=== PATIENT | female | born 1945 | race Caucasian/White ===

== ENCOUNTER 2016-05-27 10:52 | Day surgery (SDC) | payer MEDICARE ==
[~2016-05-27] VITALS: Ht 160 cm; Wt 73.0 kg
[~2016-05-27 10:52] MED LIST: 0.9% Sodium Chloride 1,000 ML IV PRN; Sodium Chloride LOK Flush 10 mL Syringe IV PRN; fentaNYL-PF 50 mCg/mL 2 mL Inj IVPUSH PRN
[2016-05-27 11:43] VITALS: BP 116/56; PULSE 68; RESP 16; O2SAT 98
[2016-05-27] MEDS ORDERED: OMEG500C PO (11:54)
[2016-05-27] MEDS ORDERED: LATA2.5D6 OP (11:54)
[2016-05-27] MEDS ORDERED: FLUT16SP NS (11:54)
[2016-05-27] MEDS ORDERED: ATOR20TA PO (11:54)
[2016-05-27] MEDS ORDERED: BRIM5DRO9 OP (11:54)
[2016-05-27] MEDS ORDERED: CALC600T12 PO (11:54)
[2016-05-27] MEDS ORDERED: FLUO40CA12 PO (11:56)
[2016-05-27] MEDS ORDERED: ACET-2766 PO (11:56)
[2016-05-27] MEDS ORDERED: ASCO-294 PO (11:56)
[2016-05-27] MEDS ORDERED: VITA400C64 PO (11:56)
[2016-05-27] MEDS ORDERED: MULT1CAP33 PO (11:56)
--- NOTE | 2016-05-27 13:22 | PCM.ENDCOL ---
Colonoscopy Date of Service: May 27, 2016 Physician Noah York MD Pre Procedure Diagnosis: Abdominal pain and screening Post Procedure Dx & Findings: Diverticuli hemorrhoids Procedure Colonoscopy Prep adequate Withdrawal time 11 minutes After unremarkable rectal examination the Olympus video colonoscope was inserted patient's anal canal and was advanced to cecum. Landmarks were identified including the ileocecal valve and appendiceal orifice. Scope was withdrawn systematically. Visualized colonic mucosa showed healthy shiny mucosa with normal healthy-appearing vasculature. We advanced to the terminal ileum. We had partial intubation. She was very redundant. In the sigmoid colon multiple medium sized diverticula noted. In the rectum retroflexion was done which showed hemorrhoids. Anal canal was inspected carefully on the way out and hemorrhoids noted. Impression Diverticuliti Partial intubation of TI normal She has no diarrhea but relatively softer stools. Hemorrhoids Recommendation Repeat colonoscopy in 5 years Diverticular diet Presedation Assessment Risks and Benefits Informed consent was obtained from the patient after all risks and benefits including but not limited to drug reaction, infection, pain, bleeding, perforation, as well as alternatives were discussed. Patient monitoring Continuous pulse oximetry, cardiac monitoring, blood pressure monitoring, IV access, and oxygen at 2L per nasal cannula. Periprocedural Fentanyl: Fentanyl 75mcg Incrementally Midazolam: Midazolam 4mg Incrementally Complications There were no periprocedural complications identified. Post Procedure Plan Post Procedure Recommendations 1. Restrict activities today. 2. Resume normal activities in the morning. 3. Resume medications. 4. Patient informed of normal post procedure side effects as bloating, drowsiness, blood streaking in the stool. 5. average risk CRCS. If colon polyps come back as: -Hyperplastic- can repeat colonoscopy in 10 years -Tubular adenoma- repeat colonoscopy in 5 years -Tubulovillous/villous adenoma- repeat colonoscopy in 3 years -If any dysplasia- return to clinic as soon as possible 6. Please don't hesitate to call me with any questions. Noah York MD May 27, 2016 13:22
[2016-05-27 13:23] VITALS: BP 89/63; PULSE 65; RESP 16; O2SAT 97
[2016-05-27 13:34] VITALS: BP 108/73; PULSE 66; RESP 16; O2SAT 97
[2016-05-27 13:36] VITALS: BP 110/68; PULSE 62; RESP 16; O2SAT 97
== END 2016-05-27 23:59 | disposition home or self-care (01) ==
LOC: END 10:52
PROVIDERS: ATTEND Internal Medicine
DX: K57.30 Diverticulosis of large intestine without perforation or abscess without bleeding (principal); K64.8 Other hemorrhoids; R10.9 Unspecified abdominal pain; Z79.899 Other long term (current) drug therapy
CPT/HCPCS: 45378; 99153; G0500; J2250; J3010; J7030